=== PATIENT | female | born 1960 | race Caucasian/White ===

== ENCOUNTER 2017-10-03 19:03 | Emergency (ER) | payer OTHER ==
[2017-10-03] MEDS: ACETAMINOPHEN 500 MG TAB PO (21:35)
[2017-10-03] MEDS: IBUPROFEN 600 MG TAB PO (21:35)
== END 2017-10-03 21:50 | disposition home or self-care (01) ==
LOC: FTE 19:03
DX: J02.9 Acute pharyngitis, unspecified (principal)
CPT/HCPCS: 99283; Z7502

== ENCOUNTER 2018-11-10 18:25 | Emergency (ER) | payer OTHER | END 2018-11-10 23:15 | disposition home or self-care (01) | LOC: FTE 18:25 | DX: M79.641 Pain in right hand (principal) | CPT/HCPCS: 99283; Z7502 ==